=== PATIENT | male | born 1955 | race Caucasian/White ===

== ENCOUNTER 2018-07-22 19:50 | Emergency (ER) | payer OTHER ==
[~2018-07-22] VITALS: Ht 188 cm; Wt 96.9 kg
[2018-07-22 19:51] VITALS: BP 164/102
[2018-07-22] MEDS ORDERED: BLOOD PRESSURE MED (19:55)
[2018-07-22] MEDS ORDERED: METF500T17 PO (19:55)
[2018-07-22] MEDS ORDERED: KETOROLAC 30 MG/1 ML ONE (20:29)
[2018-07-22] MEDS ORDERED: KETOROLAC 30 MG/1 ML IM ONE (20:30)
[2018-07-22] MEDS ORDERED: LIDODERM 5% PATCH TD ONE (22:30)
== END 2018-07-22 22:54 | disposition home or self-care (01) ==
LOC: ED 20:44
DX: M47.896 Other spondylosis, lumbar region (principal); M54.41 Lumbago with sciatica, right side; F17.200 Nicotine dependence, unspecified, uncomplicated
CPT/HCPCS: 72110; 96372; 99283; J1885

== ENCOUNTER 2019-03-29 11:41 | Inpatient (IN) | payer OTHER ==
[~2019-03-29] VITALS: Ht 188 cm; Wt 96.0 kg
[2019-03-31 13:22] VITALS: BP 151/83
== END 2019-03-31 16:54 | disposition home or self-care (01) | DRG 309 ==
LOC: ED 12:56 → EDIP 13:22 → 5SO 18:58 → DCLOUNGE 03-31 16:14
PROVIDERS: ADMIT Family Medicine; ATTEND Family Medicine
DX: I48.91 Unspecified atrial fibrillation (principal); D68.59 Other primary thrombophilia; I48.92 Unspecified atrial flutter; D75.89 Other specified diseases of blood and blood-forming organs; E11.9 Type 2 diabetes mellitus without complications; E78.5 Hyperlipidemia, unspecified; F17.210 Nicotine dependence, cigarettes, uncomplicated; F41.9 Anxiety disorder, unspecified; G47.00 Insomnia, unspecified; I11.0 Hypertensive heart disease with heart failure; I50.9 Heart failure, unspecified; Z79.01 Long term (current) use of anticoagulants; Z79.899 Other long term (current) drug therapy; Z82.49 Family history of ischemic heart disease and other diseases of the circulatory system; Z88.8 Allergy status to other drugs, medicaments and biological substances
CPT/HCPCS: 36415; 36600; 71045; 78452; 80048; 80053; 80061; 82040; 82607; 82803; 82962; 83036; 83735; 83880; 84100; 84439; 84443; 84484; 85025; 85520; 85610; 93005; 93017; 93306; 96374; 99291; G0378; J1644; J2785; A9502; C9898; J1815; J2060

== ENCOUNTER → 2019-07-10 | Outpatient (CLI) | payer OTHER ==
[~2019-07-10] MED LIST: APIX5TAB PO; ASPI81TA45 PO; ATOR40TA78 PO; BLOOD PRESSURE MED; CHLO25TA PO; DIGO250T PO; FURO-93 PO; LOSA50TA14 PO; METF500T17 PO; METO-93 PO; METO25TA91 PO; POTA10CA PO; TEST5GEL TD
== END | disposition home or self-care (01) ==
LOC: CFH 10:45
PROVIDERS: ATTEND Internal Medicine Cardiovascular Disease
DX: I35.8 Other nonrheumatic aortic valve disorders (principal); I11.9 Hypertensive heart disease without heart failure; I42.9 Cardiomyopathy, unspecified; I48.91 Unspecified atrial fibrillation; E78.5 Hyperlipidemia, unspecified; E11.9 Type 2 diabetes mellitus without complications; Z87.891 Personal history of nicotine dependence; Z79.01 Long term (current) use of anticoagulants
CPT/HCPCS: 93306